=== PATIENT | female | born 1950 | race Caucasian/White ===

== ENCOUNTER → 2017-06-03 | Outpatient (CLI) | payer MEDICARE | END | disposition home or self-care (01) | LOC: MAMMO 08:36 | DX: Z12.31 Encounter for screening mammogram for malignant neoplasm of breast (principal) | CPT/HCPCS: 77063; 77067 ==

== ENCOUNTER → 2018-05-21 | Outpatient (CLI) | payer MEDICARE ==
[~2018-05-21] MED LIST: ASCO10002 PO; ASPI-630 PO; ATOR10TA60 PO; CYAN250012 PO; HYDR-2765 PO; MELO15TA23 PO; MULT1TAB52 PO; OXYB5TAB PO; OXYC1TAB15 PO; PANT20TA2 PO; VITA1000 PO; WARF4TAB64 PO
--- NOTE | 2018-05-21 10:49 | RAD ---
MRI STUDY OF THE RIGHT KNEE WITHOUT CONTRAST USING THE HOLDER AND NEPHEW PROTOCOL Clinical indications: Right knee pain. Preoperative evaluation. TECHNIQUE: Noncontrast MRI sequences of the right knee were performed using the Holder and Nephew protocol. FINDINGS: The anterior cruciate ligament is not identified and therefore may be chronically torn. The posterior cruciate ligament is intact. The quadriceps and patellar tendons are intact. There is significant loss of meniscal substance of the lateral meniscus which may be due to chronic degeneration. There is an inferior articular surface tear of the posterior horn of the medial meniscus. There is severe chondromalacia with loss of articular cartilage of the lateral tibiofemoral joint compartment. Significant loss of articular cartilage of the medial tibiofemoral joint compartment is seen as well. Prominent spurring of both of these joint compartments is seen. Moderate chondromalacia patellae is seen involving the medial patellar facet and apex. Trochlear chondromalacia is seen. There is moderate degenerative spurring of the patellofemoral joint compartment. No fracture or marrow infiltrative process is seen. Small knee joint effusion is seen. No Gayle's cyst is evident. Collateral ligaments are difficult to evaluate without coronal images. No edema is seen involving the medial collateral ligament. There is no edema seen involving the lateral collateral ligament complex or iliotibial band. The popliteus tendon is intact. No muscle edema is evident. 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 Chondromalacia patellae and trochlear chondromalacia. Severe chronic degeneration and loss of the substance of the lateral meniscus. Tear of the inferior articular surface of the posterior horn of the medial meniscus. Chronic ACL tear. Electronically signed by: Zander Armendariz MD (05/21/2018 10:46 AM) [facility]
--- NOTE | 2018-05-21 13:28 | RAD ---
EXAM: Right lower extremity bone length study. HISTORY: Holder and nephew protocol. COMPARISON: MRI obtained on the same date. FINDINGS: Frontal views of the right lower extremity are obtained. There is severe lateral compartment joint space narrowing with subchondral sclerosis and marginal spurring involving the right knee. There is associated right genu valgus. There is cortical irregularity subchondral lucency involving the articular aspect of the right medial femoral condyle, suggesting a combination of intra-articular osteophytes and subchondral cyst formation. No cortical collapse is seen. There is a small benign osseous excrescence along the medial distal femoral metaphysis. There are vascular calcifications. There is a corticated ossicle inferior to the lateral malleolus, likely the sequela of remote injury. IMPRESSION: Severe lateral compartment predominant osteoarthritis of the right knee with genu valgus. This is better characterized on the MRI obtained on the same date. Electronically signed by: Keira Sagastume MD (05/21/2018 1:25 PM) [facility]
== END | disposition home or self-care (01) ==
LOC: MRI 09:30
PROVIDERS: ATTEND Orthopaedic Surgery Sports Medicine
DX: S83.511A Sprain of anterior cruciate ligament of right knee, initial encounter (principal); S83.241A Other tear of medial meniscus, current injury, right knee, initial encounter; M17.11 Unilateral primary osteoarthritis, right knee; M94.261 Chondromalacia, right knee; M21.061 Valgus deformity, not elsewhere classified, right knee; X58.XXXA Exposure to other specified factors, initial encounter; Y93.89 Activity, other specified; Y92.89 Other specified places as the place of occurrence of the external cause; Y99.8 Other external cause status
CPT/HCPCS: 73721; 77073

== ENCOUNTER → 2018-06-04 | Outpatient (CLI) | payer MEDICARE ==
[2018-06-04 10:55] LABS: BASO % 1 % (0-3); EOS # 0.1 x10^3/uL (0.0-0.7); EOS % 2 % (0-3); HEMATOCRIT 44.7 % (36.0-47.0); HEMOGLOBIN 14.6 g/dL (12.0-15.5); LYMPH # 1.2 x10^3/uL (1.0-4.8); LYMPH % 18 % (24-48); MEAN CORPUSCULAR HEMOGLOBIN 30 pg (25-35); MEAN CORPUSCULAR HGB CONC 33 g/dL (31-37); MEAN CORPUSCULAR VOLUME 91 fL (79-100); MONO # 0.7 x10^3/uL (0.0-1.1); MONO % 11 % (0-9); NEUT # 4.4 x10^3uL (1.8-7.7); NEUT % 68 % (31-73); PLATELET COUNT 178 x10^3/uL (140-400); RED BLOOD COUNT 4.91 x10^6/uL (3.50-5.40); RED CELL DISTRIBUTION WIDTH 14.9 % (11.5-14.5); WHITE BLOOD COUNT 6.5 x10^3/uL (4.0-11.0)
[2018-06-04 11:02] LABS: BILIRUBIN,URINE NEGATIVE (NEG); CLARITY,URINE CLEAR; COLOR,URINE YELLOW; NITRITE,URINE NEGATIVE (NEG); PROTEIN,URINE NEGATIVE (NEG-TRACE); UROBILINOGEN,URINE 0.2 mg/dL (0.2 mg/dL)
[2018-06-04 11:06] LABS: PROTHROMBIN TIME PATIENT 12.6 SEC (11.7-14.0)
[2018-06-04 11:07] LABS: BACTERIA,URINE FEW /HPF (0-FEW); RBC,URINE 0 /HPF (0-2); SQUAMOUS EPITHELIAL CELL,UR MOD /LPF; WBC,URINE OCC /HPF (0-4)
[2018-06-04 11:31] LABS: ALBUMIN 3.8 g/dL (3.4-5.0); CALCIUM 9.2 mg/dL (8.5-10.1); CREATININE 0.9 mg/dL (0.6-1.0); GFR 62.6; POTASSIUM 4.5 mmol/L (3.5-5.1)
--- NOTE | 2018-06-04 12:18 | EKG ---
[facility] [address] [place] [address] Test Date: 2018-06-04 Test Time: 11:14:52 Pat Name: VICTOR M JUSTIN Department: Room: Gender: F Director Of Graduate Medical Education: MR MAHANB: 1950 Requested By: ARELY HERRERA Order Number: [id number] Reading MD: Morales Lopez Measurements Intervals [place] Rate: 79 P: 25 WA: 148 QRS: 42 QRSD: 76 T: 38 QT: 358 QTc: 411 Interpretive Statements SINUS RHYTHM MINIMAL NONSPECIFIC ST-T WAVE CHANGES. RI6.01 No previous ECG available for comparison Electronically Signed On 06-06-2018 11:21:15 CDT by Morales Lopez
--- NOTE | 2018-06-04 12:21 | RAD ---
EXAM: Chest, 2 views. HISTORY: Pain. Preoperative evaluation. COMPARISON: None. FINDINGS: 2 views of the chest are obtained. There is no infiltrate, effusion or pneumothorax. The heart is normal in size. IMPRESSION: No acute pulmonary finding. Electronically signed by: Keira Sagastume MD (06/04/2018 12:18 PM) [place] [id number]
== END | disposition home or self-care (01) ==
LOC: SURGPAT 10:03
PROVIDERS: ATTEND Orthopaedic Surgery Sports Medicine
DX: Z01.818 Encounter for other preprocedural examination (principal); M17.11 Unilateral primary osteoarthritis, right knee
CPT/HCPCS: 36415; 71046; 80048; 81001; 82040; 82306; 85025; 85610; 85651; 85730; 87641; 93005

== ENCOUNTER 2018-06-18 06:01 | Inpatient (IN) | payer MEDICARE ==
[2018-06-18] VITALS (10 sets, daily range): BP systolic 90–156; BP diastolic 49–81
[~2018-06-18] VITALS: Ht 167.6 cm; Wt 102.1 kg
[~2018-06-18 06:01] MED LIST changes: +HYDROcodone/APAP 7.5/325MG 1 TAB TABLET PO PRN; +MELOXICAM 7.5 MG TABLET PO PRN; -OXYC1TAB15 PO; +TRANEXAMIC ACID 1,000 MG in IV NS 50ML -- 1ST BAG INJ ONE; +TV=100ml MORPHINE 5 MG, KETOROLAC 30 MG, ROPIVacaine 0.5% PF 60 ML, EPINEPH... INT ART ONE; -WARF4TAB64 PO
[2018-06-18] MEDS ORDERED: PROCHLORPERAZINE 10 MG/2 ML VIAL. IV PRN (07:00)
[2018-06-18] MEDS ORDERED: HYDROmorphone 2 MG/ML VIAL IV PRN (07:00)
[2018-06-18] MEDS ORDERED: fentaNYL PF VIAL 100 MCG/2 ML VIAL IV PRN ×2 (07:00→09:30)
[2018-06-18] MEDS ORDERED: ONDANSETRON PF 4 MG/2 ML VIAL. IV PRN (07:00)
[2018-06-18] MEDS ORDERED: LIDOCAINE 1% PF 2 ML VIAL. ID PRN (07:00)
[2018-06-18] MEDS ORDERED: IV RINGERS,LACTATED 1000ML 1,000 ML IV SCH (07:00)
[2018-06-18] MEDS ORDERED: DEXAMETHASONE SOD PHOS 4 MG/ML VIAL ONE (07:07)
[2018-06-18] MEDS ORDERED: fentaNYL PF VIAL 100 MCG/2 ML VIAL ONE ×2 (07:07→08:17)
[2018-06-18] MEDS ORDERED: LIDOCAINE 2% PF 5 ML VIAL. ONE (07:07)
[2018-06-18] MEDS ORDERED: ONDANSETRON PF 4 MG/2 ML VIAL. ONE (07:07)
[2018-06-18] MEDS ORDERED: PROPOFOL 20 ML IV ONE ×2 (07:07→07:46)
[2018-06-18] MEDS ORDERED: TRANEXAMIC ACID 1,000 MG in IV NS 50ML -- 2ND BAG INJ ONE (08:00)
[2018-06-18] MEDS ORDERED: SEVOFLURANE 61 TO 120 MINUTES. IH ONE (08:17)
[2018-06-18] MEDS ORDERED: ePHEDrine PF IN SALINE 50 MG/10 ML SYRINGE. IV ONE (08:42)
[2018-06-18] MEDS ORDERED: PROCHLORPERAZINE 5 MG TABLET. PO PRN (09:30)
[2018-06-18] MEDS ORDERED: 0.9 % SODIUM CHLORIDE 10 ML DISP.SYRIN. IV PRN (09:30)
[2018-06-18] MEDS ORDERED: CALCIUM CARBONATE 500 MG TAB.CHEW PO PRN (09:30)
[2018-06-18] MEDS ORDERED: METOCLOPRAMIDE HCL 10 MG/2 ML VIAL. IV PRN (09:30)
[2018-06-18] MEDS ORDERED: ZOLPIDEM 5 MG TABLET. PO PRN (09:30)
[2018-06-18] MEDS ORDERED: DEXTROSE 50% 25 GM / 50ML DISP.SYRIN. IV PRN (09:30)
[2018-06-18] MEDS ORDERED: diphenhydrAMINE 50 MG/ML VIAL IV PRN (09:30)
[2018-06-18] MEDS ORDERED: MORPHINE SULFATE 2 MG/ML VIAL. IV PRN (09:30)
--- NOTE | 2018-06-18 09:40 | PDOC4 ---
Operative Note Operative Note Date of surgery: 07/05/2018 Surgeon: Sj Herrera Asst.: Asim Kelly, advanced practice registered nurse who was necessary to perform retraction as well as wound closure throughout this case. Preoperative diagnosis: Advanced primary right knee degenerative joint disease Postoperative diagnosis: Same Procedure performed: Right total knee arthroplasty Anesthesia: Gen. Blood loss: 50 mL Tourniquet time: 60 minutes Components inserted: Holder and nephew size 6 right cobalt chrome journey II femur, 23 mm biconvex patella, size 5 right journey tibial baseplate, 9 mm thick articular insert Complications: None Reason for procedure: Patient is very pleasant 68-year-old female who has tried and failed conservative therapies for her progressive knee pain that was interfering with her daily life. We had tried exercise program, anti- inflammatories, and intra-articular injections and these failed to afford her much relief. Therefore, we had a discussion of the risks, benefits, alternatives to the above surgery and she wished to proceed. Description of procedure: Patient was greeted in the preoperative area by myself for the correct extremity was verified and marked. She was taken back to the operative suite and her antibiotics were started as she was brought back. Once in the operating room, she was transferred gently supine to the operating room table and secured to the bed with all pressure points padded. We attached a nonsterile tourniquet and taped in place to her right thigh as well as a padded bump laterally at her hip and a padded foot rest until maintain her knee in 90 passively. She underwent successful induction of a general anesthetic. Examination under anesthesia demonstrated range of motion 5 to 100. Knee was stable to varus and valgus. We then proceeded to prep and drape right lower extremity in our usual sterile fashion and conducted our standard preoperative timeout. After this, I palpated and marked surface anatomy on the Ioban. I then jasmin a line from my standard anterior midline incision. Extremity was exsanguinated with an Esmarch and tourniquet insufflated to 250 mmHg. After this, skin was incised with a scalpel and I dissected subcutaneous tissue until identified the extensor mechanism including quadriceps and patellar tendons as well as borders of the patella. I then made my standard medial parapatellar ar throtomy and performed my medial release with combination of Moody elevator and electrocautery. The leg was brought him to extension and the fat pad was bluntly dissected off of the posterior patellar tendon and excised the fat pad after protecting the tendon. The leg was flexed, it was quite stiff and she had abundant osteophytes. I took down some osteophytes in the notch as well as the cruciates. After this, we placed our visionary femoral block and pinned it into position. I then remove this and placed the standard cutting block and a loss 2 position and added my third pin. I then made my distal femoral cut and removed the bony pieces from the field. I then impacted my 5 in 1 cutting block in position and secured it with threaded pins and then made these cuts and remove these bony pieces and the cutting block from the operative field. I took care to ensure I removed osteophytes posteriorly. After this, I directed my attention to repositioned my retractors and adding a pickle fork retractor. I then pinned the visionary tibial cutting block into position and made approximately tibial cut and checked alignment with a spacer block and drop angelica, I felt it was a bit tight so I re-pinned the standard cutting block and a +2 position and recut the tibia removing the bony pieces from the operative field again. The leg was brought him to extension and was happy with the alignment. After this, I repositioned the knee into flexion and had a back my retractors. I then sized for my tibial baseplate secured it with smooth pins and drilled and punched for the baseplate fins. I then placed my femoral component trial into position and seated this and added a smooth pin. I then reamed and punched for the cam portion. After this, we remove the pin in our retractors. We placed the cam for the femoral component and trialed polyethylene, I felt the 9 gave the best range of motion and stability. We then directed attention to the patella sized and reamed for a 23 biconvex patella and places trial button. With all trial components and patient had excellent patellar tracking, range of motion was 0- 135 degrees, limited by posterior soft tissue. Knee was stable to varus and valgus in extension and mid flexion. We then removed all trial components, thoroughly irrigated all bony surfaces and then proceeded to cement in place our tibial component followed by femoral component. Care was taken remove excess bone cement. Trial polyethylene was added and secured in place and the cement was allowed to polymerize with the leg in extension. Patellar button was cemented in place and held with a clamp. I then injected my periarticular mixture into the salvador-incisional soft tissues. After the cement hardened, and I took the knee through range of motion tested stability and was happy with the 9. I removed the trial articular insert, thoroughly irrigated the operative field again and placed my 9 mm thick polyethylene articular insert, ensuring that it was fully seated and engaged. We then placed a 1/8 inch Hemovac exiting superolaterally given the amount of osteophytes and exposed bone. After this, the tourniquet was let down, some bleeders were cauterized. Overall the field was fairly dry. I then closed arthrotomy with simple interrupted #1 Vicryl with an exception of a [id number] at the proximal extent of the arthrotomy. Arthrotomy closure tested in in flexion, no extravasation of blood noted. Inverted interrupted 2-0 Vicryl in a multilayered fashion was used for subcutaneous tissue and running 4-0 Monocryl in a subcuticular fashion was used for skin. All counts correct 2 prior to wound closure. No complications. Surgery was well tolerated by the patient. At the conclusion, sterile dressing was applied, our incisional wound VAC, after the leg was cleansed and dried. Patient was awakened from anesthesia and transferred gently supine to the hospital bed and taken to the PACU in a stable and extubated condition. Postoperative plan is to admit her to the floor, the joint Center, for postoperative care. SJ HERRERA II, MD June 18, 2018 09:40
[2018-06-18] MEDS: fentaNYL PF VIAL 100 MCG/2 ML VIAL IV PRN ×3 (10:03→10:47)
[2018-06-18] MEDS: MORPHINE SULFATE 2 MG/ML VIAL. IV PRN ×2 (10:31→10:43)
--- NOTE | 2018-06-18 10:45 | RAD ---
Examination: 2 views of the right knee HISTORY: History of postoperative Comparison: 05/01/2018. FINDINGS: Right total knee arthroplasty changes in normal alignment. A drain is identified in the knee joint. Postoperative air identified in the knee joint. Postsurgical changes identified in the posterior patella. There is a small pedunculated osteochondroma identified in the distal aspect of the medial femur measuring 1 cm, similar to prior exam. IMPRESSION: Total knee arthroplasty changes in normal alignment. Electronically signed by: Duncan Foreman MD (06/18/2018 10:42 AM) [place] [id number]
--- NOTE | 2018-06-18 11:15 | NUR ---
pt arrived to unit at 1100 via bed in stable condition. pt is alert and oriented with family at bedside. pt is on 2LNC. pt is rating her pain 4/10. pt call light is within reach. dressing is CDI with hemovac and sally in place. no IAC line noted. received report from MARINO Cuello in PACU. will continue to monitor.
[2018-06-18] MEDS: ONDANSETRON PF 4 MG/2 ML VIAL. IV SCH ×2 (11:36→18:00)
[2018-06-18] MEDS: IV NORMAL SALINE 1000ML BAG 1,000 ML IV SCH (13:28)
[2018-06-18] MEDS: ONDANSETRON ODT 4 MG TAB.RAPDIS. PO SCH ×2 (13:28→18:00)
[2018-06-18] MEDS: oxyCODONE IR 5 MG TABLET PO PRN ×2 (13:33→21:34)
[2018-06-18] MEDS ORDERED: WARFARIN 7.5 MG TABLET. PO ONE (16:00)
[2018-06-18] MEDS: FERROUS SULFATE 325 MG TABLET. PO SCH (16:20)
[2018-06-18] MEDS ORDERED: KETOROLAC 30MG VIAL 30 MG, BUPIVACAINE MPF 0.25% 20 ML, EPINEPHrine 0.5 MG in TOTAL VOL... INT ART SCH (18:00)
[2018-06-18] MEDS: OXYBUTYNIN CHLORIDE 5 MG TABLET PO SCH (21:29)
[2018-06-18] MEDS: ATORVASTATIN CALCIUM 10 MG TABLET. PO SCH (21:30)
[2018-06-19] MEDS: oxyCODONE IR 5 MG TABLET PO PRN ×4 (01:53→19:59)
[2018-06-19 03:00] VITALS: BP 128/55
[2018-06-19 05:33] LABS: PROTHROMBIN TIME PATIENT 13.9 SEC (11.7-14.0)
[2018-06-19] MEDS ORDERED: MAGNESIUM HYDROXIDE 2,400 MG/30 ML ORAL.SUSP. PO PRN (06:00)
[2018-06-19] MEDS: ONDANSETRON PF 4 MG/2 ML VIAL. IV SCH ×2 (06:00)
[2018-06-19] MEDS: ONDANSETRON ODT 4 MG TAB.RAPDIS. PO SCH ×2 (06:00)
[2018-06-19] MEDS: PANTOPRAZOLE 40 MG TABLET.DR. PO SCH (06:14)
[2018-06-19] MEDS: traMADol 50 MG TABLET PO SCH ×3 (06:15→18:35)
[2018-06-19 07:00] VITALS: BP 151/53
--- NOTE | 2018-06-19 08:29 | PDOC ---
ORTHO PROGRESS NOTES Subjective Her pain was a little more intense last night, but she feels like is doing much better today. She has a sore throat, but is able to maintain oral intake. Vitals Vital Signs Date Time Temp Pulse Resp B/P (MAP) Pulse Ox O2 Delivery O2 Flow Rate FiO2 06/19/18 07:15 Room Air 06/19/18 06:15 16 06/19/18 03:00 98.0 81 128/55 (79) 92 98.0 06/18/18 12:00 2.0 Labs Laboratory Tests Test 06/18/18 06:50 06/19/18 05:00 Prothrombin Time 13.0 SEC (11.7-14.0) 13.9 SEC (11.7-14.0) Prothromb Time International Ratio 1.0 (0.8-1.1) 1.1 (0.8-1.1) Activated Partial Thromboplast Time 31 SEC (24-38) Laboratory Tests Test 06/19/18 05:00 Prothrombin Time 13.9 SEC (11.7-14.0) Prothromb Time International Ratio 1.1 (0.8-1.1) Notes She is awake and alert and lying in bed. Drain is in place. Dressing is intact and dry. Normal motor and sensation are present in her right lower extremity Assessment and Plan She'll be transferred to the joint Center today. PT and OT. She will continue her Coumadin and antibiotic prophylaxis. ARELY HERRERA II, MD June 19, 2018 08:29
[2018-06-19] MEDS ORDERED: MULTIVITAMIN with MINERAL TABLET. PO SCH (09:00)
[2018-06-19] MEDS: IV NORMAL SALINE 1000ML BAG 1,000 ML IV SCH (09:19)
[2018-06-19] MEDS: MULTIVITAMIN with MINERAL TABLET. PO SCH (09:30)
[2018-06-19] MEDS: ACETAMINOPHEN 500 MG TABLET PO SCH ×3 (09:30→21:59)
[2018-06-19] MEDS: OXYBUTYNIN CHLORIDE 5 MG TABLET PO SCH ×2 (09:30→20:53)
[2018-06-19] MEDS: SENNOSIDES/DOCUSATE 8.6/50MG TABLET. PO SCH (09:30)
[2018-06-19] MEDS: FERROUS SULFATE 325 MG TABLET. PO SCH ×2 (09:30→16:36)
--- NOTE | 2018-06-19 11:05 | NUR ---
assumed care at 1100. medicated with Roxicodone and Tylenol. she is rating her pain "6-7". stephen wrap , STEPHANIE and Hemovac intact. she has good motion, sensation and pulses bilateral lower extremities.
[2018-06-19 11:15] VITALS: BP 133/60
[2018-06-19] MEDS ORDERED: ONDANSETRON ODT 4 MG TAB.RAPDIS. PO PRN (12:00)
[2018-06-19] MEDS ORDERED: ONDANSETRON PF 4 MG/2 ML VIAL. IV PRN (12:00)
--- NOTE | 2018-06-19 15:06 | PATHOLOGY ---
[facility] Accession Number: [id number] . 01 Material submitted: . knee - RIGHT KNEE, BONE AND TISSUE. Modifiers: right . 01 Clinical history: . Osteoarthritis . 02 Diagnosis: Segments of bone and soft tissue, right total knee arthroplasty: - Advanced degenerative arthritis. (JPM:body line finisher; 06/19/2018) MBR/06/19/2018 . 02 Electronically signed: . Steven Figueredo MD, Pathologist NPI- [id number] . 01 Gross description: . The specimen is received in formalin, labeled "White, [place], bone and tissue right knee" and consists of multiple segments of bone including the tibial plateau with a small amount of attached medina-mendes tissue measuring 14.3 x 11.5 x 2.1 cm in aggregate. The meniscus is not identified. Osteophytes are present. The articular surfaces display multiple areas of eburnation. Asphalt Paving Machine Operator sections are submitted in A1 following decalcification. (SDY; 06/18/2018) SYU/SYU . 02 Pathologist provided ICD-10: M17.11 . 02 CPT . 243171, [id number] Specimen Comment: A courtesy copy of this report has been sent to Specimen Comment: [phone], . Specimen Comment: Report sent to / DR CONWAY Performed at: 01 [facility] [address], [place] [id number] MD Carl Del Valle MD Phone: [phone] Performed at: 02 [facility] [address], [place] [id number] MD Steven Figueredo MD Phone: [phone]
[2018-06-19] MEDS ORDERED: BISACODYL 10 MG SUPP.RECT. PR PRN (16:00)
[2018-06-19] MEDS ORDERED: WARFARIN 5 MG TABLET. PO ONE (16:00)
[2018-06-19 17:37] VITALS: BP_SYST 152
[2018-06-19] MEDS: ATORVASTATIN CALCIUM 10 MG TABLET. PO SCH (20:53)
[2018-06-20] MEDS: traMADol 50 MG TABLET PO SCH ×4 (00:37→17:47)
[2018-06-20 00:45] VITALS: BP 138/58
[2018-06-20] MEDS: ACETAMINOPHEN 500 MG TABLET PO SCH ×4 (03:42→21:12)
[2018-06-20 06:39] VITALS: BP 141/57
[2018-06-20] MEDS: PANTOPRAZOLE 40 MG TABLET.DR. PO SCH (07:28)
--- NOTE | 2018-06-20 07:46 | PDOC ---
YANELI RUVALCABA APRN 06/20/18 0746: ORTHO PROGRESS NOTES Subjective Patient doing well eating breakfast. Post-op Day: 2 Procedure R TKA Vitals Vital Signs Date Time Temp Pulse Resp B/P (MAP) Pulse Ox O2 Delivery O2 Flow Rate FiO2 06/20/18 06:39 98.6 85 20 141/57 (85) 92 Room Air 98.6 06/20/18 01:45 2.0 Labs Laboratory Tests Test 06/19/18 05:00 Prothrombin Time 13.9 SEC (11.7-14.0) Prothromb Time International Ratio 1.1 (0.8-1.1) Notes awake and alert Assessment and Plan POD #2 S/P R TKA motor and sensory intact distally dressing dry and intact continue PT ARELY HERRERA II, MD 06/20/18 1114: ORTHO PROGRESS NOTES Assessment and Plan She is doing well. I agree with the above. Anticipate discharge home with home health care tomorrow YANELI RUVALCABA APRN June 20, 2018 07:46 ARELY HERRERA II, MD June 20, 2018 11:14
[2018-06-20] MEDS: MULTIVITAMIN with MINERAL TABLET. PO SCH (08:02)
[2018-06-20] MEDS: FERROUS SULFATE 325 MG TABLET. PO SCH ×2 (08:02→16:51)
[2018-06-20] MEDS: SENNOSIDES/DOCUSATE 8.6/50MG TABLET. PO SCH (08:02)
[2018-06-20] MEDS: OXYBUTYNIN CHLORIDE 5 MG TABLET PO SCH ×2 (08:03→21:09)
[2018-06-20 09:28] LABS: HEMATOCRIT 33.8 % (36.0-47.0); HEMOGLOBIN 11.1 g/dL (12.0-15.5)
[2018-06-20 09:36] LABS: PROTHROMBIN TIME PATIENT 18.4 SEC (11.7-14.0)
--- NOTE | 2018-06-20 10:45 | NUR ---
Pharmacy Warfarin Dosing Note S: Pharmacy consulted to assist with anticoagulation therapy O: VICTOR M JUSTIN is a 68 year old F with TKA LABS: Last INR: 1.6 Last HGB: 11.1 Last HCT: 33.8 Last PLT: - Last dose of 5 mg given on 06/19/18 at 1621 Vitamin K given: N A:INR of 1.6 is within desired range, but with a significant increase from yesterday's value of 1.1. Patient has received warfarin 7.5 mg x 1 dose (06/18) and 5 mg x 1 dose (06/19). P: Warfarin dose: 2 mg today at 1600 Bridge Therapy: not needed Next INR due 06/21/18 Pharmacy anticoagulation service will continue to follow. LULU LEGGETT [facility], 06/20/18 [id number]
--- NOTE | 2018-06-20 11:14 | SNU/HH DC ---
DISCHARGE WITH HOME HEALTH DISCHARGE INFORMATION: Discharge Date: June 21, 2018 Final Diagnosis: Advanced primary right knee degenerative joint disease, status post right knee replacement Condition on Discharge: Stable CODE STATUS: Code Status: Full HOME HEALTH: Face to Face: I certify this patient is under my care and that I, or a nurse practitioner or physician's executive administrative assistant working with me, had a face to face encounter that meets the physician face to face encounter requirements with this patient on []. Medical Complications: S/P Joint Replacement Custodial For: Admin/Educate Injections, Assess & Educate Safety RN For Eval/Treatment: No Physical Therapy For: Evalulation/Treatment Occupational Therapy For: Evaluation/Treatment Pt Meets Homebound Status: Poor coordination w/ amb., Unsteady balance w/ amb, POST DISCHARGE ORDERS: Activity Instructions for Disc: Activity as tolerated Weight Bearing Status after Di: As tolerated Bathing Instructions: Shower-keep dressing dry DIET AFTER DISCHARGE: Regular Wound/Incision Care: Ice to area for comfort, Keep wound/cast CDI, Do not change dressing FOLLOW-UP: Follow up with: Jose in 2 weeks Warfarin Follow UP: per pharmacy CERTIFICATION STATEMENT: Certification Statement: Certification Statement: Based on the above finding, I certify that this patient is confined to the home and needs intermittent usp care, physical therapy and/or speech therapy, or continues to need occupational therapy.~ This patient is under my care, and I have initiated the establishment of the plan of care.~ This patient will be followed by myself or a community physician who will periodically review the plan of care. Home Meds Reported Medications Vitamin E (VITAMIN E) 1,000 Unit Capsule, 0 PO DAILY for supplement, CAP 06/04/18 Multivitamin (MULTIVITAMINS) 1 Each Tablet, 1 TAB PO DAILY for supplement, #90 TAB 3 Refills 06/04/18 Cyanocobalamin (Vitamin B-12) (Vitamin B12) 2,500 Mcg Tab.chew, 0 PO DAILY for supplement, TAB.CHEW 06/04/18 Ascorbic Acid (VITAMIN C) 1,000 Mg Tablet, 1000 MG PO DAILY for supplement, TAB 06/04/18 Aspirin (ASPIRIN) 81 Mg Tab.chew, 1 TAB PO DAILY for heart health, #30 TAB 3 Refills 06/04/18 Hydrocodone Bit/Acetaminophen (HYDROCODONE-APAP 7.5-325 ) 1 Tab Tablet, 1 TAB PO PRN Q6HRS PRN for PAIN, TAB 0 Refills 06/04/18 Atorvastatin Calcium (ATORVASTATIN CALCIUM) 10 Mg Tablet, 1 TAB PO DAILY for high cholesterol, #30 TAB 5 Refills 06/04/18 Oxybutynin Chloride (OXYBUTYNIN CHLORIDE ER) 5 Mg Tab.er.24, 1 TAB PO DAILY for stress incontinence, #30 TAB 5 Refills 06/04/18 Meloxicam (MELOXICAM) 15 Mg Tablet, 15 MG PO DAILY for arthritis, TAB 06/04/18 Pantoprazole Sodium (PROTONIX) 20 Mg Tablet.dr, 40 MG PO DAILY for gerd, TAB 06/04/18 ARELY HERRERA II, MD June 20, 2018 11:14
--- NOTE | 2018-06-20 12:54 | NUR ---
RECEIVED WALKER FOR HOME USE
[2018-06-20] MEDS ORDERED: WARFARIN 5 MG TABLET. PO ONE (16:00)
[2018-06-20] MEDS ORDERED: WARFARIN 2 MG TABLET. PO ONE (16:00)
[2018-06-20 17:46] VITALS: BP 106/60
[2018-06-20] MEDS: ATORVASTATIN CALCIUM 10 MG TABLET. PO SCH (21:09)
[2018-06-20] MEDS: oxyCODONE IR 5 MG TABLET PO PRN (21:21)
[2018-06-21] MEDS: ACETAMINOPHEN 500 MG TABLET PO SCH ×2 (03:00→09:04)
[2018-06-21 06:00] VITALS: BP 133/65
[2018-06-21] MEDS: PANTOPRAZOLE 40 MG TABLET.DR. PO SCH (06:11)
[2018-06-21] MEDS: traMADol 50 MG TABLET PO SCH ×3 (06:11→12:27)
[2018-06-21 08:06] LABS: HEMOGLOBIN 11.7 g/dL (12.0-15.5)
--- NOTE | 2018-06-21 08:16 | PDOC ---
ORTHO PROGRESS NOTES Subjective Her pain is controlled. No, complains. No chest pain. No trouble breathing. Positive flatus. Vitals Vital Signs Date Time Temp Pulse Resp B/P (MAP) Pulse Ox O2 Delivery O2 Flow Rate FiO2 06/21/18 07:59 Room Air 06/21/18 06:11 20 06/21/18 06:00 99.2 85 133/65 (87) 93 99.2 Labs Laboratory Tests Test 06/20/18 08:40 06/21/18 07:33 Hemoglobin 11.1 g/dL (12.0-15.5) 11.7 g/dL (12.0-15.5) Hematocrit 33.8 % (36.0-47.0) 35.0 % (36.0-47.0) Mean Corpuscular Hemoglobin Concent 33 g/dL (31-37) 33 g/dL (31-37) Prothrombin Time 18.4 SEC (11.7-14.0) Prothromb Time International Ratio 1.6 (0.8-1.1) Laboratory Tests Test 06/20/18 08:40 06/21/18 07:33 Hemoglobin 11.1 g/dL (12.0-15.5) 11.7 g/dL (12.0-15.5) Hematocrit 33.8 % (36.0-47.0) 35.0 % (36.0-47.0) Mean Corpuscular Hemoglobin Concent 33 g/dL (31-37) 33 g/dL (31-37) Prothrombin Time 18.4 SEC (11.7-14.0) Prothromb Time International Ratio 1.6 (0.8-1.1) Notes She is awake and alert in bed. She remains neurovascularly intact. Wound VAC is in place Assessment and Plan She will be discharged home today. Okay to weight-bear as tolerated. Coumadin for a month. She can resume aspirin after that. ARELY HERRERA II, MD June 21, 2018 08:16
--- NOTE | 2018-06-21 08:17 | PDOC3 ---
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 Brief Hospital Course Allergies Allergies Coded Allergies Type Severity Reaction Last Updated Verified No Known Drug Allergies 06/18/18 No Vital Signs Vital Signs Date Time Temp Pulse Resp B/P (MAP) Pulse Ox O2 Delivery O2 Flow Rate FiO2 06/21/18 07:59 Room Air 06/21/18 06:11 20 06/21/18 06:00 99.2 85 133/65 (87) 93 99.2 Lab Results Laboratory Tests Test 06/20/18 08:40 06/21/18 07:33 Hemoglobin 11.1 g/dL (12.0-15.5) 11.7 g/dL (12.0-15.5) Hematocrit 33.8 % (36.0-47.0) 35.0 % (36.0-47.0) Mean Corpuscular Hemoglobin Concent 33 g/dL (31-37) 33 g/dL (31-37) Prothrombin Time 18.4 SEC (11.7-14.0) Prothromb Time International Ratio 1.6 (0.8-1.1) Laboratory Tests Test 06/20/18 08:40 06/21/18 07:33 Hemoglobin 11.1 g/dL (12.0-15.5) 11.7 g/dL (12.0-15.5) Hematocrit 33.8 % (36.0-47.0) 35.0 % (36.0-47.0) Mean Corpuscular Hemoglobin Concent 33 g/dL (31-37) 33 g/dL (31-37) Prothrombin Time 18.4 SEC (11.7-14.0) Prothromb Time International Ratio 1.6 (0.8-1.1) Brief Hospital Course Ms. Newton is a 68 old female who presented to my outpatient orthopedic surgery clinic with complaints of severe and progressive pain that failed conservative therapies including injections. We had a discussion of the risks, benefits, alternatives to total knee arthroplasty and she elected to proceed. She tolerated surgery well and recovered well from anesthesia in the PACU. She was then taken to the joint Center for care and observation. She did receive PT, OT, DVT and antibiotic prophylaxis. She recovered well from surgery and remained hemodynamically stable and afebrile throughout the hospitalization. Pain was controlled on oral pain medicine at the time of discharge. Good progress was made with therapy throughout the hospitalization, and activities of daily living were accomplished by the patient. The incision was clean dry and intact and the operative extremity had normal motor and sensation. Discharge Information Follow Up: Weeks Disposition/Orders: D/C to Home w/ HH Scheduled Ascorbic Acid (Vitamin C) 1,000 Mg Tablet, 1,000 MG PO DAILY for supplement, (Reported) Entered as Reported by: HORTENCIA NICHOLAS on 06/04/18 1032 Last Taken: Unknown Dose on 06/11/18 Last Action: HELD on 06/18/18918 by BOBO HERRERA MD Atorvastatin Calcium (Atorvastatin Calcium) 10 Mg Tablet, 1 TAB PO DAILY for high cholesterol, #30 Ref 5 (Reported) Entered as Reported by: HORTENCIA NICHOLAS on 06/04/18 1029 Last Taken: Unknown Dose on 06/11/18 Last Action: Continued on 06/18/18918 by BOBO HERRERA MD Cyanocobalamin (Vitamin B-12) (Vitamin B12) 2,500 Mcg Tab.chew, 0 PO DAILY for supplement, (Reported) Entered as Reported by: HORTENCIA NICHOLAS on 06/04/18 1033 Last Taken: Unknown Dose on 06/11/18 Last Action: HELD on 06/18/18918 by BOBO HERRERA MD Multivitamin (Multivitamins) 1 Each Tablet, 1 TAB PO DAILY for supplement, #90 Ref 3 (Reported) Entered as Reported by: HORTENCIA NICHOLAS on 06/04/18 1034 Last Taken: Unknown Dose on 06/11/18 Last Action: Converted on 06/18/18918 by BOBO HERRERA MD Oxybutynin Chloride (Oxybutynin Chloride Er) 5 Mg Tab.er.24, 1 TAB PO DAILY for stress incontinence, #30 Ref 5 (Reported) Entered as Reported by: HORTENCIA NICHOLAS on 06/04/18 1029 Last Taken: Unknown Dose on 06/17/18 Last Action: Converted on 06/18/18918 by BOBO HERRERA MD Pantoprazole Sodium (Protonix) 20 Mg Tablet.dr, 40 MG PO DAILY for gerd, (Reported) Entered as Reported by: HORTENCIA NICHOLAS on 06/04/18 1027 Last Taken: Unknown Dose on 06/17/18 Last Action: Converted on 06/18/18918 by BOBO HERRERA MD Vitamin E (Vitamin E) 1,000 Unit Capsule, 0 PO DAILY for supplement, (Reported) Entered as Reported by: HORTENCIA NICHOLAS on 06/04/18 1034 Last Taken: Unknown Dose on 06/11/18 Last Action: HELD on 06/18/18918 by BOBO HERRERA MD Discontinued Medications Aspirin (Aspirin) 81 Mg Tab.chew, 1 TAB PO DAILY for heart health, #30 Ref 3 (Reported) Entered as Reported by: HORTENCIA NICHOLAS on 06/04/18 1031 Last Taken: Unknown Dose on 06/11/18 Last Action: HELD on 06/18/18918 by BOBO HERRERA MD Hydrocodone Bit/Acetaminophen (Hydrocodone-Apap 7.5-325 ) 1 Tab Tablet, 1 TAB PO PRN Q6HRS PRN for PAIN, Ref 0 (Reported) Entered as Reported by: HORTENCIA NICHOLAS on 06/04/18 1031 Last Taken: Unknown Dose on 06/18/18 Last Action: HELD on 06/18/18918 by BOBO HERRERA MD Meloxicam (Meloxicam) 15 Mg Tablet, 15 MG PO DAILY for arthritis, (Reported) Entered as Reported by: HORTENCIA NICHOLAS on 06/04/18 1028 Last Taken: Unknown Dose on 06/17/18 Last Action: HELD on 06/18/18918 by BOBO HERRERA MD Patient Instructions Patient Instructions She will be discharged home. Home health care has been set up. We will get her started on outpatient therapy as soon as we are able. The patient will be on Coumadin for a month. She can weight-bear as tolerated. Worrisome signs and symptoms that should prompt a phone call to my office were discussed. We'll see her back in 2 weeks, sooner should a problem arise. ARELY HERRERA II, MD June 21, 2018 08:17
[2018-06-21 08:19] LABS: PROTHROMBIN TIME PATIENT 17.3 SEC (11.7-14.0)
[2018-06-21] MEDS: SENNOSIDES/DOCUSATE 8.6/50MG TABLET. PO SCH (09:04)
[2018-06-21] MEDS: MULTIVITAMIN with MINERAL TABLET. PO SCH (09:04)
[2018-06-21] MEDS: OXYBUTYNIN CHLORIDE 5 MG TABLET PO SCH (09:04)
[2018-06-21] MEDS: FERROUS SULFATE 325 MG TABLET. PO SCH (09:04)
[2018-06-21] MEDS: oxyCODONE IR 5 MG TABLET PO PRN ×2 (09:07→14:02)
--- NOTE | 2018-06-21 09:20 | NUR ---
Pharmacy Warfarin Dosing Note S:Pharmacy consulted to assist with anticoagulation therapy started with target INR: 1.6 - 2.5 O:VICTOR M JUSTIN is a 68 year old F with [facility] LABS: Last INR: 1.4 Last HGB: 11.7 Last HCT: 35.0 Last PLT: - Last dose of 2 mg given on 06/20/18 at 1614 Previous Regimen: Vitamin K given: N Drug Interaction Changes: None Ongoing Drug Interactions: A:INR of 1.4 is below desired range. Target range for this patient is: 1.6 - 2.5 P: Warfarin dose: 4 mg Today prior to discharge Bridge Therapy: none Next INR due 06/25/18 Pharmacy anticoagulation service will continue to follow. NURY MCKINNEY RPH, 06/21/18 [id number]
--- NOTE | 2018-06-21 09:47 | NUR ---
Raquel is doing fair. OT reported would need to to wait for assist in bathing at home. orally reviewed discharge instructions.
[2018-06-21] MEDS ORDERED: WARF4TAB64 PO (10:46)
[2018-06-21] MEDS ORDERED: OXYC1TAB15 PO (10:47)
[2018-06-21 13:52] VITALS: BP 145/59
[2018-06-21] MEDS ORDERED: WARFARIN 4 MG TABLET. PO ONE (14:00)
--- NOTE | 2018-06-21 14:30 | NUR ---
REVIEWED WRITTEN DISCHARGE INSTRUCTIONS WITH PRESENT. REVIEWED MEDICATIONS NEW ONE NICODERM PATCH AND THE PAIN PILL; SIDE EFFECTS AND USAGE. REVIEWED RESTRICTIONS TO ACTIVITIES OF DAILY LIVING SUCH DRIVING BATHING. REVIEWED INCISIONAL CARE AND FOLLOW UP WITH DR. HERRERA. BOTH VERBALIZED UNDERSTANDING OF THESE INSTRUCTIONS. DISMISSED TO HOME WITH PERSONAL BELONGINGS; PHONE AND COMPUTER, WALKER AND CLOTHING.
== END 2018-06-21 15:00 | disposition home health service (06) | DRG 470 ==
LOC: OPSVCIP 06:01 → 4 NORTH 11:11 → 4 SOUTHEST 06-19 11:04
PROVIDERS: ADMIT Orthopaedic Surgery Sports Medicine; ATTEND Orthopaedic Surgery Sports Medicine
PROC: 0SRC0J9 Replacement of Right Knee Joint with Synthetic Substitute, Cemented, Open Approach (ICD-10-PCS; principal; 2018-06-18 07:30)
DX: M17.11 Unilateral primary osteoarthritis, right knee (principal); K21.9 Gastro-esophageal reflux disease without esophagitis; Z90.49 Acquired absence of other specified parts of digestive tract
CPT/HCPCS: 36415; 73560; 85014; 85018; 85610; 85730; 86850; 86900; 86901; 88305; 88311; A7015; C1713; J0171; J0696; J1100; J1885; J2001; J2270; J2405; J2704; J2795; J3010; J7030; J7120; Q0162; 97110; 97116; 97150; 97530; 97535; C1769

== ENCOUNTER → 2018-12-06 | Outpatient (CLI) | payer MEDICARE ==
[~2018-12-06] MED LIST changes: -HYDROcodone/APAP 7.5/325MG 1 TAB TABLET PO PRN; -MELOXICAM 7.5 MG TABLET PO PRN; -OXYB5TAB PO; +OXYB5TAB2 PO; +OXYC1TAB15 PO; -TRANEXAMIC ACID 1,000 MG in IV NS 50ML -- 1ST BAG INJ ONE; -TV=100ml MORPHINE 5 MG, KETOROLAC 30 MG, ROPIVacaine 0.5% PF 60 ML, EPINEPH... INT ART ONE; +WARF4TAB64 PO
--- NOTE | 2018-12-07 10:41 | RAD ---
DATE: 12/06/2018 2:51 PM EXAM: MAMMO CHANDLER SCREENING BILATERAL HISTORY: Screening COMPARISON: June 03, 2017 and July 18, 2013. Bilateral CC and MLO views of the breasts were performed. Bilateral breast tomosynthesis was performed in CC and MLO projections. This study was interpreted with the benefit of Computerized Aided Detection (CAD). FINDINGS: Breast Density: FATTY The Breast Parenchyma is primarily fatty replaced. Breast parenchyma level density A. No new suspicious masses, microcalcifications or architectural distortion is present to suggest malignancy in either breast. The visualized axillae are unremarkable. IMPRESSION: No mammographic evidence of malignancy. BI-RADS CATEGORY: 1 NEGATIVE RECOMMENDED FOLLOW-UP: 12M 12 MONTH FOLLOW-UP Annual screening mammography is recommended, unless clinically indicated sooner based on symptoms or change in physical exam. PQRS compliance statement: Patient information was entered into a reminder system with a target due date one year for the next mammogram. Mammography is a sensitive method for finding small breast cancers, but it does not detect them all and is not a substitute for careful clinical examination. A negative mammogram does not negate a clinically suspicious finding and should not result in delay in biopsying a clinically suspicious abnormality. "Our facility is accredited by the [employer] Mammography Program."
== END | disposition home or self-care (01) ==
LOC: MAMMO 15:16
PROVIDERS: ATTEND Internal Medicine
DX: Z12.31 Encounter for screening mammogram for malignant neoplasm of breast (principal)
CPT/HCPCS: 77063; 77067

== ENCOUNTER → 2018-12-10 | Outpatient (CLI) | payer MEDICARE ==
--- NOTE | 2018-12-10 12:50 | KCIC ---
EXAM: Dual energy x-ray absorptiometry (DEXA). HISTORY: Post menopausal screening. TECHNIQUE: Dual energy x-ray absorptiometry of the lumbar spine and the left hip was performed. T-score of average bone mineral density based was calculated based on standard deviations above or below the expected young adult normal value. Diagnostic definitions were established by the World Health Organization. FINDINGS: The average bone mineral density associated with L1-L4 is 1.170 g/cm^2, corresponding with a T-score of 1.1. The average total bone mineral density associated with the left hip is 0.907 g/cm^2, corresponding with a T-score of -0.3. No comparison examinations are available. Refer to the worksheets for full detail. IMPRESSION: 1. Normal. Average bone mineral density yields a T-score of -1.0 or greater. Fracture risk is low. Electronically signed by: Shonda Giles MD (12/10/2018 12:47 PM) [facility]
== END | disposition home or self-care (01) ==
LOC: KCIC DEXA 11:56
PROVIDERS: ATTEND Internal Medicine
DX: M81.0 Age-related osteoporosis without current pathological fracture (principal)
CPT/HCPCS: 77080